=== PATIENT | male | born 1980 | race Caucasian/White ===

== ENCOUNTER → 2017-08-06 | Outpatient (REF) | payer OTHER ==
[2017-08-06 19:28] LABS: NON PROGRESSIVE MOTILITY (c) 0 %; PROGRESSIVE MOTILITY (a) 0 % (>=32); TOTAL MOTILITY 0 % (>=40)
[2017-08-06 19:29] LABS: IMMOTILITY 0 %
[2017-08-06 19:30] LABS: % NORMAL FORMS < 4 % (>=4)
[2017-08-06 19:31] LABS: SPERM# 0 M/Ejac (>=39); TOTAL FUNCTIONAL 0 M/Ejac.; TOTAL PROGRESSIVE SPERM 0 M/Ejac.
== END ==
LOC: M LAB REF 15:00
PROVIDERS: ATTEND Obstetrics & Gynecology Reproductive Endocrinology
DX: Z31.49 Encounter for other procreative investigation and testing (principal)

== ENCOUNTER → 2021-04-05 | Outpatient (CLI) | payer BC, OTHER ==
--- NOTE | 2021-04-09 15:49 | SLEEPHOME ---
DATE: 04/05/2021 ORDERED BY: MALACHI Marcos Diagnostic home sleep testing was performed due to concern for the obstructive sleep apnea syndrome in this patient with hypersomnia. For testing, a nocturnal T3 respiratory monitoring device was used. Continuous record was made of pulse, oxygen saturation, air flow, chest and abdominal strain, and body position. Eleven hours and 52 minutes of data were reviewed. There were 6 hours and 37 minutes marked as time in bed. During the interval marked time in bed, there were 108 respiratory events identified of 10 seconds in duration or greater for a respiratory event index of 16.3. The events were obstructive. Baseline pulse rate was 69. Pulse rate ranged 45 to 107. Baseline saturation was 93%. Saturations fell to 84%. Testing was performed in both the supine and nonsupine positions. IMPRESSION: Abnormal home sleep testing with repetitive respiratory events and oxygen desaturations to 84% with a respiratory event index of 16.3 is consistent with the obstructive sleep apnea syndrome. RECOMMENDATION: The patient should be encouraged to undergo a formal sleep evaluation.
== END ==
LOC: M SLEEP HO 09:25
PROVIDERS: ATTEND Physician Assistant
DX: G47.10 Hypersomnia, unspecified (principal)

== ENCOUNTER 2024-04-12 11:39 | Emergency (ER) | payer BC ==
[2024-04-12] MEDS ORDERED: IBUP200C28 PO (11:46)
[2024-04-12] MEDS ORDERED: MEDR4PAK PO (12:48)
[2024-04-12] MEDS ORDERED: METH-1165 PO (12:48)
[2024-04-12] MEDS ORDERED: TRAM50TA2 PO (12:48)
[2024-04-12 13:32] VITALS: BP 134/86; TEMP 98.3; O2SAT 98
== END 2024-04-12 13:33 | disposition home or self-care (01) ==
LOC: M ED 11:39
DX: M54.32 Sciatica, left side (principal); M54.50 Low back pain, unspecified; Z79.1 Long term (current) use of non-steroidal anti-inflammatories (NSAID); Z79.899 Other long term (current) drug therapy